=== PATIENT | female | born 2000 | race Caucasian/White ===

== ENCOUNTER 2021-09-02 01:46 | Emergency (ER) | payer OTHER, SELFPAY ==
--- NOTE | ~2021-09-02 | XR_ITS ---
EXAMINATION: XR CHEST CLINICAL INFORMATION: Chest pain. COMPARISON: None TECHNIQUE: Frontal view of the chest was obtained. FINDINGS: Normal appearance of the cardiomediastinal structures. No effusions or pneumothoraces. Normal pattern of pulmonary vasculature no pulmonary consolidation identified. XR/XR chest 1V IMPRESSION: *No acute cardiopulmonary abnormalities.
--- NOTE | 2021-09-02 01:48 | ECG_ITS ---
Test Reason : CHEST PAIN Blood Pressure : / mmHG Vent. Rate : 083 BPM Atrial Rate : 083 BPM P-R Int : 152 ms QRS Dur : 084 ms QT Int : 380 ms P-R-T Axes : 067 046 026 degrees QTc Int : 446 ms Normal sinus rhythm Normal ECG No previous ECGs available Referred By: Generic ED Physician Electronically Signed By:MIEKY OLMSTEAD MD
[2021-09-02 02:01] VITALS: BP 124/59; PULSE 85; RESP 16; TEMP 36.4; O2SAT 98; BMI 42.0
[2021-09-02 02:27] LABS: MANUAL DIFF FLAG NO
[2021-09-02 02:28] LABS: Basophils Absolute Auto 0.1 X10*3/uL (0.0-0.2); Basophils Percent Auto 0.5 % (0-2); Eosinophils Absolute Auto 0.1 X10*3/uL (0.0-0.4); Hematocrit 40.4 % (37.0-47.0); Hemoglobin 12.7 g/dl (12.0-16.0); Imm Gran Abs Auto 0.05 X10*3/uL (0.00-0.03); Imm Gran Pct Auto 0.4 % (0.0-0.4); Lymphocytes Absolute Auto 3.7 X10*3/uL (1.2-4.9); Lymphocytes Percent Auto 29.3 % (20-40); Mean Corpuscular HGB Conc 31.4 g/dl (31.0-35.0); Mean Corpuscular Hemoglobin 26.1 pg (27.0-33.0); Mean Platelet Volume 9.8 fL (9.4-12.3); Monocytes Absolute Auto 0.9 X10*3/uL (0.1-1.2); Monocytes Percent Auto 7.3 % (2-11); Neutrophils Absolute Auto 7.8 x10*3/uL (2.0-8.3); Neutrophils Percent Auto 61.5 % (45-73); Platelet Count 370 X10*3/uL (160-400); Red Blood Count 4.87 X10*6/uL (4.20-5.50); Red Cell Distribution Width 12.8 % (11.0-16.0); White Blood Count 12.6 X10*3/uL (4.8-10.8)
--- NOTE | 2021-09-02 02:31 | ED_ITS ---
HPI - Chest Pain General Chief Complaint: Chest Pain Stated Complaint: chest pain Time Seen by Provider: 09/02/21 02:29 Source: patient Mode of arrival: ambulatory Limitations: no limitations History of Present Illness HPI narrative: Patient comes to the emergency room complaining of reproducible chest pain on the right middle and left side. Patient states she was sleeping when she started feeling the pain. Patient states that she has had multiple episodes of chest pain in the past, worked up for it and everything has been negative. Patient denies palpitations. patient denies coughing, no nausea vomiting or diarrhea. Related Data Allergies Allergy/AdvReac Type Severity Reaction Status Date / Time No Known Allergies Allergy Verified 09/02/21 02:29 Review of Systems Review of Systems: Constitutional : No Weight loss, No Fever, No Chills, No Night Sweats, No Fatigue, No Malaise ENT/Mouth : No Hearing loss, No Ear Pain, No Nasal Congestion, No Sinus Pain, No Hoarseness, No sore throat, No Rhinorrhea, No Swallowing Difficulty Eyes: No Eye Pain, No Swelling, No Redness, No Foreign Body, No Discharge, No Vision Changes Cardiovascular : Complaining of right middle and left side chest pain worse with pressing on it, No SOB, No Dyspnea on Exertion, No Orthopnea, No Edema, No Palpitations Respiratory : No Cough, No Sputum, No Wheezing, No Smoke Exposure, No Dyspnea Gastrointestinal : No Nausea, No Vomiting, No Diarrhea, No Constipation, No ab dominal Pain, No Hematochezia, No Melena Genitourinary : no irregular bleeding, No Dysuria, No Urinary Frequency, No Hematuria, No Urinary Incontinence, No Urgency, No Flank Pain, No Urinary Flow Changes, No Hesitancy Musculoskeletal : No joint pain, No Myalgias, No Joint Swelling Skin : No Skin Lesions, No rash Neuro : No Weakness, No Numbness, No Paresthesias, No Loss of Consciousness, No Dizziness, No Headache Psych : No Anxiety/Panic, No Depression, No SI/HI/AH/VH, No Social Issues, Heme/Lymph: No Bruising, No Bleeding,No Lymphadenopathy Endocrine : No Polyuria, No Polydipsia, No Temperature Intolerance PMFSH Social History Social History Advance Directives: No Advance Directives Information Provided: Yes Physical Exam Vital Signs: Vital Signs: Last Vital Signs Temp 97.6 F 09/02/21 02:01 Pulse 85 09/02/21 02:01 Resp 16 09/02/21 02:01 BP 124/59 L 09/02/21 02:01 Pulse Ox 98 09/02/21 02:01 O2 Del Method 09/02/21 02:01 BMI result Body Mass Index 42.0 Const: Other: Appearance: Alert. Oriented X3. No acute distress. Eyes: Pupils equal, round and reactive to light. ENT: Pharynx normal. Neck: Normal inspection. Neck supple. No lymph nodes noted. No crepitus CVS: Normal heart rate and rhythm. Pulses normal. Normal S1 and S2. Patient has reproducible chest pain on palpation right, middle and left side of the chest. Respiratory: No respiratory distress. Breath sounds normal. No Wheezing. No rales Abdomen: Soft and nontender. No rigidity. No distention. Skin: Skin warm and dry. Normal skin color. Normal skin turgor. Extremities: No lower extremity edema. No Lacerations. No Rash Neuro: Oriented X 3. No motor deficit. No sensory deficit. Moving all extremities. No slurred speech. CN 2 through 12 grossly intact Psych: calm, cooperative, normal affect Course Course Course Narrative: EKG is normal. Chest x-ray normal. Labs pending. Wells score for PE is 0 MDM - Chest Pain Lab Data Result diagrams: 09/02/21 02:23 09/02/21 02:23 Labs: Lab Results 09/02/21 09/02/21 09/02/21 Range/Units 02:23 02:23 02:23 WBC 12.6 H (4.8-10.8) X10*3/uL RBC 4.87 (4.20-5.50) X10*6/uL Hgb 12.7 (12.0-16.0) g/dl Hct 40.4 (37.0-47.0) % MCV 83.0 (80.0-98.0) fL MCH 26.1 L (27.0-33.0) pg MCHC 31.4 (31.0-35.0) g/dl RDW 12.8 (11.0-16.0) % Plt Count 370 (160-400) X10*3/uL MPV 9.8 (9.4-12.3) fL Immature Gran % (Auto) 0.4 (0.0-0.4) % Neut % (Auto) 61.5 (45-73) % Lymph % (Auto) 29.3 (20-40) % [place] % (Auto) 7.3 (2-11) % Eos % (Auto) 1.0 (0-4) % Baso % (Auto) 0.5 (0-2) % Lymph # (Auto) 3.7 (1.2-4.9) X10*3/uL [place] # (Auto) 0.9 (0.1-1.2) X10*3/uL Eos # (Auto) 0.1 (0.0-0.4) X10*3/uL Baso # (Auto) 0.1 (0.0-0.2) X10*3/uL Abs Immat Gran (auto) 0.05 H (0.00-0.03) X10*3/uL Absolute Neuts (auto) 7.8 (2.0-8.3) x10*3/uL Absolute Nucleated RBC 0.000 (0.0-0.012) X10*3/uL Nucleated RBC % (auto) 0.0 (0.0-0.2) /100WBC Sodium 137 (135-145) mmol/L Potassium 4.3 (3.3-5.1) mmol/L Chloride 105 (96-108) mmol/L Carbon Dioxide 22 (22-29) mmol/L Anion Gap 14 (12-20) BUN 17 H (9-16) mg/dL Creatinine 0.70 (0.5-1.4) mg/dL Estim Creat Clear Calc 144.1 Estimated GFR > 60 Random Glucose 74 (60-115) mg/dL Calcium 9.2 (8.4-10.2) mg/dL Troponin I High Sens < 3.5 (<3.5-17.0) ng/L Imaging Data Chest x-ray: Radiologist's impression: Normal appearance of the cardiomediastinal structures. No effusions or pneumothoraces. Normal pattern of pulmonary vasculature no pulmonary consolidation identified. XR/XR chest 1V IMPRESSION: *No acute cardiopulmonary abnormalities. Discharge Plan Discharge Clinical Impression: Atypical chest pain Patient Disposition: Home, Self-Care Instructions: Chest Pain (ED), Chest Wall Pain (ED)
[2021-09-02 02:46] LABS: Anion Gap 14 (12-20); Blood Urea Nitrogen 17 mg/dL (9-16); Calcium 9.2 mg/dL (8.4-10.2); Carbon Dioxide 22 mmol/L (22-29); Chloride 105 mmol/L (96-108); Creatinine Clr Calc Pharmacy 144.1; Estimated Glomerular Filt Rate > 60; Glucose Random 74 mg/dL (60-115); Potassium 4.3 mmol/L (3.3-5.1); Sodium 137 mmol/L (135-145)
[2021-09-02 02:52] LABS: Troponin-I High Sensitivity < 3.5 ng/L (<3.5-17.0)
[2021-09-02 04:01] VITALS: BP 104/53; PULSE 78; RESP 12; TEMP 36.7; O2SAT 99
== END 2021-09-02 04:11 | disposition home or self-care (01) ==
PROVIDERS: Emergency Provider Emergency Medicine; PCP Internal Medicine
DX: R07.89 Other chest pain (principal); Z79.899 Other long term (current) drug therapy
CPT/HCPCS: 36415; 71045; 80048; 84484; 85025; 93005; 99284; 99285

== ENCOUNTER 2022-06-09 23:51 | Emergency (ER) | payer OTHER, SELFPAY ==
[2022-06-10 00:10] VITALS: BP 117/66; PULSE 80; RESP 16; TEMP 36.7; O2SAT 97; BMI 46.0
--- OUTSIDE RECORDS SUMMARY | 2022-06-10 01:15 | XMS_ITS | Continuity of Care Document ---
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 Phone Not on Staff, PCP Primary Care Physician Unavail able Encounter [facility] Date(s): 09/30/21 - 09/30/[address] [address]- Discharge Disposition: A-D/C Walkout Attending Physician: Gabriel Umanzor DO Admitting Physician: Gabriel Umanzor DO Referring Physician: Not on Staff, Referring MD Allergies, Adverse Reactions, Alerts No Known Allergies Problem List Condition Effective Dates Status Health Status Inform ant Severe obesity(Confirmed) Active Vital Signs Most recent to oldest [Reference Range]: 1 Height 160 cm (09/30/21 2:06 AM) Weight 107.5 kg (09/30/21 2:06 AM) Oxygen Saturation [94-100 %] 99 % (09/30/21 2:06 AM) Pulse Rate [55-90 bpm] 89 bpm (09/30/21 2:06 AM) Blood Pressure [90-138/55-84 mm Hg] 120/ 69mm Hg (09/30/21 2:06 AM) Respiratory Rate [16-30 br/min] 19 br/mi n (09/30/21 2:06 AM) Temperature [96.8-100.4 DegF] 97.2 DegF (09/30/21 2:06 AM) Mode of Delivery (Oxygen) Room air (09/30/21 2:06 AM) Blood pressure sites Arm, right (09/30/21 2:06 AM) Temperature Route Temporal (09/30/21 2:06 AM) Dry Weight 107.5 kg (09/30/21 2:06 AM) Dry Weight Obtained Via Standing scale (09/30/21 2:06 AM) Social History Social History Type Response Smoking Status Never (less than 100 in lifetime) entered on: 09/27/21 Sex
--- NOTE | 2022-06-10 01:27 | ED.HA ---
HPI - Headache General Chief Complaint: Headache Stated Complaint: Headache Time Seen by Provider: 06/10/22 01:12 Source: patient Mode of arrival: ambulatory Limitations: no limitations History of Present Illness MD elicited complaint: headache Onset (ago): day(s) (4) Onset description: gradually Location: generalized Severity: severe Pain scale (0-10): 7 Quality & Timing: aching Exacerbating factors: none Relieving factors: nothing Associated symptoms: nausea Treatments prior to arrival: acetaminophen Related Data Previous Rx's Medication Instructions Recorded fluticasone propionate 50 1 spray intranasal DAILY #16 grams 06/10/22 mcg/actuation nasal spray,suspension (Flonase Allergy Relief) ibuprofen 800 mg tablet 800 mg PO Q8H PRN pain #10 tabs 06/10/22 metoclopramide HCl 10 mg tablet 10 mg PO Q6H PRN nausea and 06/10/22 (Reglan) vomiting/headache #10 tabs pseudoephedrine HCl 30 mg tablet 30 mg PO Q4-6H PRN nasal 06/10/22 (Sudafed) congestion #14 tabs Allergies Allergy/AdvReac Type Severity Reaction Status Date / Time No Known Allergies Allergy Verified 09/02/21 02:29 [facility] Social History Social History Advance Directives: No Advance Directives Information Provided: No Physical Exam Vital Signs: Vital Signs: Last Vital Signs Temp 98.0 F 06/10/22 00:10 Pulse 80 06/10/22 00:10 Resp 16 06/10/22 00:10 BP 117/66 06/10/22 00:10 Pulse Ox 97 06/10/22 00:10 BMI result Body Mass Index 46.0 GEN: Well developed, no acute distress, alert, oriented HEENT: Normocephalic, atraumatic, normal external ears, nose appears normal, no oropharyngeal edema or exudates Eyes: Normal to appearance Neck: Supple, no lymphadenopathy Respiratory: Talks in complete sentences, no respiratory distress, clear to auscultation bilaterally Cardiovascular: Regular rate and rhythm, no murmurs rubs or gallops Abdomen: Soft, nontender, nondistended, no guarding, no rebound Back: No CVA tenderness Extremities: No clubbing cyanosis or edema Neurologic: No focal neurologic deficits, cranial nerves 2-12 intact, strength is 5/5 bilaterally, gait normal Skin: No rash Course Course Course Narrative: Patient presents with headache pain symptoms are severe. Examination was benign. The symptoms are not sudden onset. He has no focal deficits. Possible these are pain symptoms are related to sinus. She has had some mild epistaxis which resolved on its own. Patient was provided with analgesics, prescriptions and follow-up. Medical Decision Making Medical Decision Making MDM Narrative: presents with Headache. No focal neurological symptoms. Neuro exam is benign. Pt is nontoxic. VSS. Based on history and normal neurological exam I have low suspicion for intracranial tumor, intracranial bleed, meningitis, temporal arteritis, glaucoma, CO poisoning. Most likely patient has benign headache, recommend rest, hydration, and ibuprofen. Disposition: Discharge home with strict return precautions and instructions for prompt primary care follow up. Differential Diagnosis Differential Diagnoses: The differential diagnosis associated with the presentation includes (Tension headache, migraine headache, sinus headache, cluster headache) Prescription Management I considered prescription management with: Pain Medication Discharge Plan Discharge Clinical Impression: Headache Patient Disposition: Home, Self-Care Instructions: Nosebleed (ED), Acute Headache (DC) Prescriptions: New metoclopramide HCl [Reglan] 10 mg tablet 10 mg PO Q6H PRN (Reason: nausea and vomiting/headache) Qty: 10 0RF ibuprofen 800 mg tablet 800 mg PO Q8H PRN (Reason: pain) Qty: 10 0RF pseudoephedrine HCl [Sudafed] 30 mg tablet 30 mg PO Q4-6H PRN (Reason: nasal congestion) Qty: 14 0RF Rx Instructions: DNExceed 4 doses/24h fluticasone propionate [Flonase Allergy Relief] 50 mcg/actuation spray,suspension 1 spray intranasal DAILY Qty: 16 0RF Rx Instructions: administer into each nostril Referrals: Priyanka Rinaldi DNP [Primary Care Provider] - 5 days
[2022-06-10] MEDS: Acetaminophen 325 MG TABLET 975 MG PO (01:34)
[2022-06-10] MEDS: Metoclopramide HCl 10 MG TABLET PO (01:34)
[2022-06-10] MEDS: Ibuprofen 800 MG TABLET PO (01:34)
== END 2022-06-10 01:43 | disposition home or self-care (01) ==
PROVIDERS: Emergency Provider Emergency Medicine; PCP Registered Nurse
DX: R51.9 Headache, unspecified (principal); R04.0 Epistaxis
CPT/HCPCS: 99283